=== PATIENT | male | born 1950 | race Caucasian/White ===

== ENCOUNTER 2016-07-15 08:53 | Emergency (ER) | payer OTHER ==
[~2016-07-15] VITALS: Ht 172.7 cm; Wt 83.9 kg
[2016-07-15 10:10] LABS: BASO % 0 % (0-3); EOS % 1 % (0-3); HEMOGLOBIN 14.5 g/dL (13.0-17.5); LYMPH # 1.4 x10^3/uL (1.0-4.8); LYMPH % 12 % (24-48); MEAN CORPUSCULAR HEMOGLOBIN 29 pg (25-35); MEAN CORPUSCULAR HGB CONC 34 g/dL (31-37); MEAN CORPUSCULAR VOLUME 85 fL (79-100); MONO % 6 % (0-9); NEUT % 80 % (31-73); PLATELET COUNT 157 x10^3/uL (140-400); RED BLOOD COUNT 5.06 x10^6/uL (4.30-5.70); RED CELL DISTRIBUTION WIDTH 12.4 % (11.5-14.5); WHITE BLOOD COUNT 11.3 x10^3/uL (4.0-11.0)
--- NOTE | 2016-07-15 10:13 | RAD ---
Right foot radiographs History: Pain swelling on top and lateral side of right foot. Symptoms began 2 days ago. Comparison: None. Findings: AP, lateral, oblique views right foot. No acute fracture or dislocation is identified. No acute osseous abnormality is seen. There appears to be soft tissue swelling adjacent to the lateral aspect of fifth MTP joint. Small focus of heterotopic calcification is seen adjacent to the medial aspect of the first MTP joint. Impression: 1. No acute osseous abnormality identified. 2. Soft tissue swelling centered at the fifth MTP joint.
[2016-07-15 10:29] LABS: CALCIUM 9.1 mg/dL (8.5-10.1); CREATININE 0.9 mg/dL (0.7-1.3); POTASSIUM 4.3 mmol/L (3.5-5.1)
[2016-07-15 10:35] LABS: ALBUMIN 3.9 g/dL (3.4-5.0); ALBUMIN/GLOBULIN RATIO 1.1 (1.0-1.7); TOTAL BILIRUBIN 0.4 mg/dL (0.2-1.0); TOTAL PROTEIN 7.3 g/dL (6.4-8.2)
[2016-07-15] MEDS ORDERED: HYDR-971 PO (10:49)
[2016-07-15] MEDS ORDERED: SULF1TAB24 PO (10:49)
--- NOTE | 2016-07-15 10:49 | PHYS DOC ---
Past Medical History Past Medical History: High Cholesterol, Hypertension Past Surgical History: Other Additional Past Surgical Histo: L KNEE,BILAT SHOULDER Additional Information: A COUPLE OF CIGARS A DAY Alcohol Use: Occasionally Drug Use: None Adult General Chief Complaint Chief Complaint: FOOT INJURY PAIN HPI HPI Patient is a 66 year old male who presents with right foot pain and redness for 3 days. He denies any injury to the foot. He relates that he was wearing boots to [facility] on Thursday in the boots rubbing his foot. His foot has been sore since then that he denies any skin wounds associated with this. He has been elevating his feet, doing Epsom salt soaks, and applying ice without improvement in the pain, redness, or swelling in his foot. He denies any fevers. He has not had any recent travel, surgery, or immobilization. His PCP is Dr. Rivera. Review of Systems Review of Systems Constitutional: Denies fever or chills. [] Musculoskeletal: Denies back pain or joint pain. Reports right foot pain and swelling. Integument: Denies rash or skin lesions. Reports right foot pain and redness and warmth. Neurologic: Denies focal weakness or sensory changes. [] Allergies Allergies Allergies Coded Allergies Type Severity Reaction Last Updated Verified No Known Drug Allergies 07/15/16 No Physical Exam Physical Exam Constitutional: Well developed, well nourished, no acute distress, non-toxic appearance. [] HENT: Normocephalic, atraumatic, oropharynx moist. [] Eyes: PERRLA, EOMI, conjunctiva normal, no discharge. [] Skin: Warm, dry, no rash. There is erythema, warmth, and edema over the right ventral foot on the lateral side without sign of injury. Extremities: Right ventral foot tenderness is most on the lateral side, ROM intact, mild edema. 2+ DP pulse. Light touch sensation intact distally. Less than 2 second capillary refill distally. There is no tenderness over the plantar surface of the foot. There is no edema, erythema, or tenderness of the ankle or calf. Neurologic: Alert and oriented X 3, normal motor function, normal sensory function, no focal deficits noted. [] Psychologic: Affect normal, judgement normal, mood normal. [] Current Patient Data Vital Signs Vital Signs Date Time Temp Pulse Resp B/P Pulse Ox O2 Delivery O2 Flow Rate FiO2 07/15/16 11:02 81 105/65 96 Room Air 07/15/16 09:01 99.4 18 99.4 Lab Values Laboratory Tests Test 07/15/16 09:54 White Blood Count 11.3x10^3/uL (4.0-11.0) H Red Blood Count 5.06x10^6/uL (4.30-5.70) Hemoglobin 14.5g/dL (13.0-17.5) Hematocrit 43.0% (39.0-53.0) Mean Corpuscular Volume 85fL (79-100) Mean Corpuscular Hemoglobin 29pg (25-35) Mean Corpuscular Hemoglobin Concent 34g/dL (31-37) Red Cell Distribution Width 12.4% (11.5-14.5) Platelet Count 157x10^3/uL (140-400) Neutrophils (%) (Auto) 80% (31-73) H Lymphocytes (%) (Auto) 12% (24-48) L Monocytes (%) (Auto) 6% (0-9) Eosinophils (%) (Auto) 1% (0-3) Basophils (%) (Auto) 0% (0-3) Neutrophils # (Auto) 9.1x10^3uL (1.8-7.7) H Lymphocytes # (Auto) 1.4x10^3/uL (1.0-4.8) Monocytes # (Auto) 0.6x10^3/uL (0.0-1.1) Eosinophils # (Auto) 0.1x10^3/uL (0.0-0.7) Basophils # (Auto) 0.0x10^3/uL (0.0-0.2) Sodium Level 141mmol/L (136-145) Potassium Level 4.3mmol/L (3.5-5.1) Chloride Level 104mmol/L (98-107) Carbon Dioxide Level 24mmol/L (21-32) Anion Gap 13 (6-14) Blood Urea Nitrogen 14mg/dL (8-26) Creatinine 0.9mg/dL (0.7-1.3) Estimated GFR (Cockcroft-Gault) 85.0 BUN/Creatinine Ratio 16 (6-20) Glucose Level 114mg/dL (70-99) H Calcium Level 9.1mg/dL (8.5-10.1) Total Bilirubin 0.4mg/dL (0.2-1.0) Aspartate Amino Transferase (AST) 14U/L (15-37) L Alanine Aminotransferase (ALT) 24U/L (16-63) Alkaline Phosphatase 65U/L (46-116) Total Protein 7.3g/dL (6.4-8.2) Albumin 3.9g/dL (3.4-5.0) Albumin/Globulin Ratio 1.1 (1.0-1.7) Laboratory Tests 07/15/16 09:54 Laboratory Tests 07/15/16 09:54 EKG EKG [] Radiology/Procedures Radiology/Procedures REASON: pain, swelling PROCEDURE: FOOT RIGHT 3V Right foot radiographs History: Pain swelling on top and lateral side of right foot. Symptoms began 2 days ago. Comparison: None. Findings: AP, lateral, oblique views right foot. No acute fracture or dislocation is identified. No acute osseous abnormality is seen. There appears to be soft tissue swelling adjacent to the lateral aspect of fifth MTP joint. Small focus of heterotopic calcification is seen adjacent to the medial aspect of the first MTP joint. Impression: 1. No acute osseous abnormality identified. 2. Soft tissue swelling centered at the fifth MTP joint. Course & Med Decision Making Course & Med Decision Making Pertinent Labs and Imaging studies reviewed. (See chart for details) [] Dragon Disclaimer Dragon Disclaimer This electronic medical record was generated, in whole or in part, using a voice recognition dictation system. Departure Departure Impression: Primary Impression: Cellulitis of foot excluding toe Disposition: 01 HOME, SELF-CARE Condition: STABLE Referrals: YAZ RIVERA Jr, MD (PCP) Patient Instructions: Cellulitis, [id number] Additional Instructions: You have an infection in your foot called cellulitis. Please complete all the prescribed antibiotics, even if your foot is improving. Please follow-up with your doctor in the next 2-3 days for reevaluation of your foot. Return to the emergency department if you notice worsening of the wound, the wound is not improving with treatment, or if you have any other new or concerning symptoms. Scripts Hydrocodone/Apap 5-325 (Baldwin 5-325 Tablet)1 Each Tablet1 Tab PO PRN Q6HRS PRN PAIN #20 TAB Prov:JUNAID DAUGHERTY 07/15/16 Sulfamethoxazole/Trimethoprim (Bactrim Ds Tablet)1 Each Tablet1 Tab PO BID #20 TAB Prov:JUNAID DAUGHERTY 07/15/16 JUNAID DAUGHERTY Jul 15, 2016 10:49
[2016-07-15 11:02] VITALS: BP 105/65
[2016-07-16] MEDS ORDERED: IBUP200T77 PO (04:29)
== END 2016-07-15 11:04 | disposition home or self-care (01) ==
LOC: ER 08:53
DX: L03.115 Cellulitis of right lower limb (principal); E78.00 Pure hypercholesterolemia, unspecified; I10 Essential (primary) hypertension; F17.210 Nicotine dependence, cigarettes, uncomplicated
CPT/HCPCS: 36415; 73630; 80053; 85027; 99285

== ENCOUNTER 2016-07-16 03:38 | Emergency (ER) | payer OTHER ==
[~2016-07-16] VITALS: Ht 172.7 cm; Wt 83.9 kg
[~2016-07-16 03:38] MED LIST: HYDR-971 PO; SULF1TAB24 PO
[2016-07-16 04:06] VITALS: BP 112/61
[2016-07-16] MEDS ORDERED: IBUP200T77 PO (04:29)
--- NOTE | 2016-07-16 04:29 | PHYS DOC ---
Past Medical History Past Medical History: High Cholesterol, Hypertension Past Surgical History: Other Additional Past Surgical Histo: L KNEE,BILAT SHOULDER Alcohol Use: Occasionally Drug Use: None Adult General Chief Complaint Chief Complaint: FEVER HPI HPI 66-year-old gentleman presenting to emergency Department today with fever. He was recently diagnosed with acute sight of the right lower extremity. He reports of pain. He reports the rashes improving. Currently is pain is mild however he is able to ambulate which previously was not. The pain is nonradiating intermittent and alleviated by oral pain medications previously prescribed. Review of Systems Review of Systems Review of Systems is negative for chest pain shortness of breath nausea vomiting diarrhea. All other systems is negative unless otherwise noted in HPI. Allergies Allergies Allergies Coded Allergies Type Severity Reaction Last Updated Verified No Known Drug Allergies 07/15/16 No Physical Exam Physical Exam Constitutional: Well developed, well nourished, no acute distress, non-toxic appearance. [] HENT: Normocephalic, atraumatic, bilateral external ears normal, oropharynx moist, no oral exudates, nose normal. [] Eyes: PERRLA, EOMI, conjunctiva normal, no discharge. [] Neck: Normal range of motion, no tenderness, supple, no stridor. [] Cardiovascular:Heart rate regular rhythm, no murmur [] Lungs & Thorax: Bilateral breath sounds clear to auscultation [] Abdomen: Bowel sounds normal, soft, no tenderness, no masses, no pulsatile masses. [] Skin: Warm, dry, no erythema, no rash. [] Back: No tenderness, no CVA tenderness. [] Extremities: the patient's right lower extremity is neurovascular intact. He's able to when was toes it has normal sensation the foot. He has a faint macular rash on the dorsal aspect of his right foot. It is mildly one to touch. Consistent with previous diagnosis of cellulitis. Reportedly improved from previous. Neurologic: Alert and oriented X 3, normal motor function, normal sensory function, no focal deficits noted. [] Psychologic: Affect normal, judgement normal, mood normal. [] Current Patient Data Vital Signs Vital Signs Date Time Temp Pulse Resp B/P Pulse Ox O2 Delivery O2 Flow Rate FiO2 07/16/16 04:06 100.8 115 16 95 Room Air 100.8 EKG EKG [] Radiology/Procedures Radiology/Procedures [] Course & Med Decision Making Course & Med Decision Making Pertinent Labs and Imaging studies reviewed. (See chart for details) 66-year-old gentlemen presenting today with fever. He is a diagnosis of cellulitis of the right lower extremity which is currently improving. He reports pain in his extremities improving as well. no crepitus to palpation of the foot. I recommended ibuprofen for his fever along with his oral pain medications for pain control. Dragon Disclaimer Dragon Disclaimer This electronic medical record was generated, in whole or in part, using a voice recognition dictation system. Departure Departure Impression: Primary Impression: Fever Additional Impression: Cellulitis of foot excluding toe Disposition: HOME, SELF-CARE Condition: STABLE Referrals: YAZ RIVERA Jr, MD (PCP) Patient Instructions: Cellulitis Additional Instructions: Thank you for allowing us to participate in your care today. Followup with your primary care physician in 3 days if your symptoms do not improve. If you do not have a primary care provider you can ask for a list of our primary care providers. Return to the emergency department you have any new or concerning findings. This should be evaluated by the primary care physician and any necessary consulting services for continued management within a few days after discharge. Return to emergency room if you have any new or concerning symptoms including but not limited to fever, chills, nausea, vomiting, intractable pain, any new rashes, chest pain, shortness of air, uncontrolled bleeding, difficulty breathing, and/or vision loss. Scripts Ibuprofen 200 Mg [id number] Mg PO PRN Q6HRS FEVER > 100.5'F #15 TAB Prov:ROSELYN VANG MD 07/16/16 Problem Qualifiers ROSELYN VANG MD Jul 16, 2016 04:29
== END 2016-07-16 05:07 | disposition home or self-care (01) ==
LOC: ER 03:38
DX: R50.9 Fever, unspecified (principal); L03.115 Cellulitis of right lower limb; I10 Essential (primary) hypertension; E78.00 Pure hypercholesterolemia, unspecified
CPT/HCPCS: 99282

== ENCOUNTER → 2017-05-27 | Outpatient (CLI) | payer OTHER ==
[~2017-05-27] MED LIST changes: +IBUP200T77 PO
--- NOTE | 2017-05-27 15:45 | KCIC ---
MRI Cervical Spine Without Contrast History: Left cervical radiculopathy, left shoulder tingling Technique: Multiplanar, multi sequential noncontrast MR imaging was performed of the cervical spine. Comparison: None Findings: There is some motion degradation. Cervical vertebral body stature is preserved. Cervical cord caliber is within normal limits without focal signal abnormality. There is grade 1 anterior spondylolisthesis C4-5. There is negligible posterior subluxation of C6 relative to C7 and C5 relative to C6. There is more advanced degenerative disc disease at C4-5 and to lesser degree C5-C6 and C6-7, minimally at C3-4. There is fairly prominent C6-C7 and mild C5-C6 endplate edema likely reactive/degenerative in etiology. There is no significant abnormality of the cervical medullary junction. C2-C3: Neural foramina and spinal canal are adequate. C3-C4: There is severe left facet hypertrophic change. There is left uncovertebral degenerative change. There is severe narrowing of the left neural foramen. Spinal canal is adequate. There is mild narrowing of the right neural foramen due to uncovertebral and facet degenerative change. C4-C5: There is severe facet degenerative change greater on the left. Spinal canal is adequate. There is uncovertebral degenerative change bilaterally. There is fairly severe neural foramina compromise greater on the right. C5-C6: There is minimal disc osteophyte complex and bulge. Spinal canal is adequate. There is fairly severe left and moderate right facet degenerative change. There is uncovertebral degenerative change greater on the right. There is fairly severe neural foramina compromise greater on the left. C6-C7: There is minimal disc osteophyte complex and bulge. Central canal is borderline 10 mm. There is bilateral facet hypertrophic change. There is uncovertebral degenerative change greater on the left. There is severe narrowing of the left neural foramen, [id number] narrowing on the right. C7-T1: Spinal canal is adequate. There is severe facet degenerative change. There is probable mild narrowing of the left neural foramen, right neural foramen overall adequate. Impression: 1. There is multilevel cervical facet and uncovertebral degenerative change, multilevel cervical neural foramina compromise including more significant narrowing bilaterally at C4-5 and C5-C6 and on the left at C3-4 and C6-7. 2. There is more advanced degenerative disc disease at C4-5 to lesser degree C5-6 and C6-7. There is multilevel mild spondylosis. There is edema of the C6-7 vertebral bodies about the endplates probably reactive/degenerative in etiology. 3. There is no significant cervical spinal stenosis. Electronically signed by: Adrian Álvarez MD (05/27/2017 3:42 PM) [id number]
== END | disposition home or self-care (01) ==
LOC: KCIC MRI 14:17
PROVIDERS: ATTEND Internal Medicine
DX: M47.22 Other spondylosis with radiculopathy, cervical region (principal); M50.321 Other cervical disc degeneration at C4-C5 level; M50.322 Other cervical disc degeneration at C5-C6 level; M50.323 Other cervical disc degeneration at C6-C7 level; M47.892 Other spondylosis, cervical region; R60.9 Edema, unspecified
CPT/HCPCS: 72141

== ENCOUNTER 2018-01-22 12:59 | Emergency (ER) | payer OTHER ==
[2018-01-22] MEDS: TETRACAINE 0.5% OPHTH SOLUTION 4ML BOTTLE. OD (13:46)
[2018-01-22] MEDS: FLUORESCEIN OPHTH TEST STRIP. OD (13:46)
== END 2018-01-22 14:48 | disposition home or self-care (01) ==
LOC: ER 12:59
DX: H53.8 Other visual disturbances (principal); E78.00 Pure hypercholesterolemia, unspecified; I10 Essential (primary) hypertension; F17.210 Nicotine dependence, cigarettes, uncomplicated; Z88.2 Allergy status to sulfonamides
CPT/HCPCS: 99283